=== PATIENT | female | born 1970 | race Caucasian/White ===

== ENCOUNTER 2017-08-16 07:31 | Day surgery (SDC) | payer OTHER ==
--- NOTE | 2017-08-16 07:59 | PDOC ---
History of Present Illness - General Chief Complaint: Pain Stated Complaint: STOMACH PAIN/VOMITING Time Seen by Provider: 08/16/17 07:59 - History of Present Illness Initial Comments: 46 year old female with PMH of Caesarian section (x2 most recent in 2010), lap band (2007), and cholecystectomy (1989) presenting with abdominal pain, nausea, and vomiting for the past few days. Patient states that she started having symptoms on Sunday08/13/17 which she described as some sharp generalized central abdominal pain that has gotten worse over the last few days and spread to her lower abdomen bilaterally. She has also had some NBNB vomiting x 2 daily along with some diarrhea x 2 daily[address] She spoke to Dr[address] Mandel who performed her lap band and he informed her to come to the ED. Denies, fevers, chills, chest pain, SOB, or other symptoms. 08/16/17 08:27 Past History - Past Medical History Allergies/Adverse Reactions: Allergies Allergy/AdvReac Type Severity Reaction Status Date / Time No Known Allergies Allergy Verified 08/16/17 07:33 COPD: No - Surgical History Abdominal Surgery: Yes (Lap band 2007) Cholecystectomy: Yes - Suicide/Smoking/Psychosocial Hx Smoking History: Never smoked Have you smoked in the past 12 months: No Information on smoking cessation initiated: No Hx Alcohol Use: No Drug/Substance Use Hx: No Substance Use Type: None Review of Systems - Review of Systems Constitutional: No: Chills, Diaphoresis, Fever HEENTM: No: See HPI, Eye Pain Respiratory: No: Cough, Shortness of Breath Cardiac (ROS): No: Chest Pain, Edema ABD/GI: Yes: Diarrhea, Nausea, Poor Appetite, Vomiting, Indigestion, Abdominal cramping. No: Constipated : No: Dysuria, Discharge, Frequency Musculoskeletal: No: Back Pain, Joint Pain, Muscle Weakness Integumentary: No: Bruising, Change in Color, Change in Hair/Nails, Flushing, Lesions Neurological: No: Headache, Numbness, Paresthesia Psychiatric: No: Anxiety, Depression *Physical Exam - Vital Signs Last Vital Signs Temp Pulse Resp BP Pulse Ox 98.0 F 88 16 143/81 100 08/16/17 07:33 08/16/17 07:33 08/16/17 07:33 08/16/17 07:33 08/16/17 07:33 - Physical Exam General Appearance: Yes: Nourished, Appropriately Dressed. No: Apparent Distress HEENT: positive: EOMI, LEROY, Normal ENT Inspection, Normal Voice Neck: positive: Trachea midline, Normal Thyroid, Supple. negative: Tender, Rigid Respiratory/Chest: positive: Lungs Clear, Normal Breath Sounds. negative: Chest Tender, Respiratory Distress, Accessory Muscle Use Cardiovascular: positive: Regular Rhythm, Regular Rate Gastrointestinal/Abdominal: positive: Normal Bowel Sounds, Tender ( periumbilical and bilateral lower quadrant tenderness), Flat, Soft Musculoskeletal: positive: Normal Inspection. negative: CVA Tenderness Extremity: positive: Normal Capillary Refill, Normal Inspection, Normal Range of Motion. negative: Tender Integumentary: positive: Normal Color, Dry, Warm Neurologic: positive: Fully Oriented, Alert, Normal Mood/Affect, Normal Response , Motor Strength 08/25 ED Treatment Course - LABORATORY CBC & Chemistry Diagram: 08/16/17 08:00 08/16/17 08:00 Medical Decision Making - Medical Decision Making Patient with lap band surgery 10 years prior presenting with gastroenteritis with non-specific abdominal pain. Dr. Mandel evaluated the patient at 9:20 and agreed to take her to the OR for her continuous abdominal pain. Her labs were roughly WNL with the exception of slightly elevated total bilirubin (1.2) with normal direct bilirubin. The rest of the preop labs are pending. Will admit to [facility]/ satellite under Dr. Mandel. 08/16/17 09:53 *DC/Admit/Observation/Transfer Diagnosis at time of Disposition: Gastroenteritis Abdominal pain Qualifiers: Abdominal location: generalized Qualified Code(s): R10.84 - Generalized abdominal pain - Discharge Dispostion Admit: Yes - Referrals Referrals: Ari Roach MD [Primary Care Provider] - - Patient Instructions - Post Discharge Activity
[2017-08-16] MEDS ORDERED: FAMOTIDINE IV 20 MG/12 ML VIAL IVPUSH ONE (08:06)
[2017-08-16] MEDS ORDERED: ONDANSETRON 4 MG/2 ML VIAL IVPUSH ONE (08:06)
[2017-08-16] MEDS ORDERED: MAG HYDROX/AL HYDROX/SIMETH 30 ML UNIT-DOSE CUP PO ONE (08:06)
[2017-08-16] MEDS ORDERED: FAMOTIDINE 20 MG/50 ML IVPB 20 MG/50 ML MG IVPB ONE ×2 (08:31→22:16)
[2017-08-16] MEDS ORDERED: ONDANSETRON 4 MG/2 ML VIAL ONE (08:31)
[2017-08-16] MEDS ORDERED: MAG HYDROX/AL HYDROX/SIMETH 30 ML UNIT-DOSE CUP ONE (08:31)
[2017-08-16 08:58] LABS: ALBUMIN 3.8 g/dl (3.4-5.0); ALK PHOS 70 U/L (45-117); AMYLASE 39 U/L (25-115); ANION GAP 6 (8-16); BASO % 1.3 % (0-2.0); BILIRUBIN,DIRECT 0.2 mg/dL (0.0-0.2); BILIRUBIN,TOTAL 1.2 mg/dL (0.2-1.0); BLOOD UREA NITROGEN 14 mg/dL (7-18); CALCIUM 8.8 mg/dL (8.5-10.1); CHLORIDE 108 mmol/L (98-107); CO2 27 mmol/L (21-32); CREATININE 0.8 mg/dL (0.55-1.02); EOS % 2.2 % (0-4.5); GLUCOSE,RANDOM 99 mg/dL (74-106); HEMATOCRIT 42.1 % (32.4-45.2); HEMOGLOBIN 14.5 GM/dL (10.7-15.3); LIPASE 110 U/L (73-393); LYMPH % 25.4 % (8-40); MCH 31.8 pg (25.7-33.7); MCHC 34.4 g/dl (32.0-36.0); MEAN CELL VOLUME 92.4 fl (80-96); MEAN PLT VOLUME 7.7 fl (7.5-11.1); MONO % 7.8 % (3.8-10.2); NEUT % 63.3 % (42.8-82.8); PLATELET COUNT 292 K/MM3 (134-434); POTASSIUM 4.4 mmol/L (3.5-5.1); RBC 4.56 M/mm3 (3.60-5.2); SGOT/AST 13 U/L (15-37); SGPT/ALT 16 U/L (12-78); SODIUM 141 mmol/L (136-145); TOT PROT 7.6 g/dl (6.4-8.2); WHITE BLOOD COUNT 7.1 K/mm3 (4.0-10.0)
--- NOTE | 2017-08-16 09:28 | PDOC ---
Attending Attestation - HPI HPI: 08/16/17 09:56 The patient is a 46 year old female, with a significant past medical history of lap band surgery (2007 or 2008 as per Pt), cholecystectomy, and two cesareans ( 1989 and 2010), who presents to the emergency department with nausea and vomiting after eating for the past few days. She states she also feels she has been gaining more weight and feels her midsection is larger than it was prior to her lap band surgery, however, states that might be all in my head. She states she becomes nauseous and vomits after eating. She reports, sometimes I do not eat the right things, but it is associated with anything I eat lately. She denies chest pain, shortness of breath, headache and dizziness. She denies fever, chills, diarrhea and constipation. She denies dysuria, frequency, urgency and hematuria. Allergies: NKDA Surgeon: Dr. Mandel PCP: Dr. Marj Roach - Physicial Exam PE: 08/16/17 09:59 Vitals: Triage vital signs reviewed General Appearance: No acute distress, well nourished, well developed Head: Atraumatic Eyes: Pupils equal reactive round, extraocular movement intact Neck: Supple; No nuchal rigidity Chest Wall: Nontender Cardiac: Regular rate and rhythm, no murmurs, no rubs, no gallops Lungs: Clear to auscultation bilateral, good air movement bilaterally Abdomen: (+) RUQ and LUQ ttp. Soft, nondistended, normal bowel sounds, Extremities: Full range of motion to all extremities, no cyanosis, clubbing, or edema Skin: Warm and dry, no rashes or lesions, no rash, no petechiae Neuro: AOX3; Cranial Nerves 2-12 grossly intact, Strength intact to all extremities, Sensation intact to all extremities, gait normal Psych: Normal mood, normal affect - Medical Decision Making 08/16/17 09:00 Documentation prepared by Kendra Razo, acting as medical collector for Timothy Burrell MD 08/16/17 09:57 Pt is a 46 y.o F with PMHx of lap band and cholecystectomy who presents with a few days of nausea and vomiting noted after PO Intake. Plan: EKG, labs, anti-nausea medication, pre-op for band removal. Dr. Mandel examined the patient in the ED at 9:30 <Kendra Razo - Last Filed: 08/16/17 09:56> - Resident Resident Name: Hood Singh - ED Attending Attestation I have performed the following: I have examined & evaluated the patient, The case was reviewed & discussed with the resident, I agree w/resident's findings & plan, Exceptions are as noted <Timothy Burrell - Last Filed: 08/16/17 14:12> Heart Score/ECG Review - ECG Impressions Comment:: 08/16/17 14:11 EKG performed at 9:07 AM. Demonstrates sinus rhythm [address] elevations, isolated T-wave inversion in lead 3 Interpreted by me. <Timothy Burrell - Last Filed: 08/16/17 14:12>
[2017-08-16 09:49] LABS: URINE APPEARANCE SLCLOUDY; URINE BILIRUBIN NEGATIVE (<2.0 mg/dL); URINE COLOR DKYELLOW; URINE GLUCOSE (UA) NEGATIVE (NEGATIVE); URINE KETONE NEGATIVE (NEGATIVE); URINE LEUK ESTERASE TRACE (NEGATIVE); URINE NITRITE NEGATIVE (NEGATIVE); URINE PROTEIN NEGATIVE (NEGATIVE); URINE UROBILINOGEN NEGATIVE mg/dL (0.2-1.0)
[2017-08-16 09:54] LABS: EPI CELLS FEW /HPF (FEW); URINE HYALINE CAST 7 /lpf; URINE MUCUS MANY
[2017-08-16 10:10] LABS: INR 0.97 (0.82-1.09)
[2017-08-16 11:41] VITALS: BMI 40.6
--- NOTE | 2017-08-16 12:35 | HP ---
Admitting History and Physical - Admission Chief Complaint: Epigastric pain, nausea, dysphagia History Source: Patient Limitations to Obtaining History: No Limitations - Past Medical History ...LMP: 07/13/17 ...: No - Past Surgical History Past Surgical History: Yes: Bariatric Surgery (S/P Gastric Band) - Smoking History Smoking history: Never smoked Have you smoked in the past 12 months: No - Alcohol/Substance Use Hx Alcohol Use: No Home Medications - Allergies Allergies/Adverse Reactions: Allergies Allergy/AdvReac Type Severity Reaction Status Date / Time No Known Allergies Allergy Verified 08/16/17 11:22 - Home Medications Home Medications: Ambulatory Orders NK [No Known Home Medication] 08/16/17 Family Disease History - Family Disease History Family History: Denies Review of Systems - Review of Systems Constitutional: denies: Fever Neck: reports: No Symptoms Cardiovascular: reports: No Symptoms Respiratory: reports: Cough Gastrointestinal: reports: Abdominal Pain (Epigastric), Nausea, Other (Dysphagia ) Neurological: denies: Change in LOC Pain Intensity: 4 Physical Examination Vital Signs: Vital Signs Temperature 98.9 F 08/16/17 10:55 Pulse Rate 82 08/16/17 11:00 Respiratory Rate 16 08/16/17 11:00 Blood Pressure 136/80 08/16/17 11:00 O2 Sat by Pulse Oximetry (%) 100 08/16/17 11:00 Constitutional: Yes: Calm HENT: Yes: WNL Neck: Yes: WNL Cardiovascular: Yes: Regular Rate and Rhythm Respiratory: Yes: Regular Gastrointestinal: Yes: Soft. No: Distention, Tenderness, Rebound Neurological: Yes: Alert, Oriented Labs: CBC, BMP 08/16/17 08:00 08/16/17 08:00 Problem List - Problems (1) Gastric band malfunction Code(s): K95.09 - OTHER COMPLICATIONS OF GASTRIC BAND PROCEDURE (2) Dysphagia Code(s): R13.10 - DYSPHAGIA, UNSPECIFIED Qualifiers: Dysphagia type: unspecified Qualified Code(s): R13.10 - Dysphagia, unspecified (3) Nausea Code(s): R11.0 - NAUSEA (4) Abdominal pain Code(s): R10.9 - UNSPECIFIED ABDOMINAL PAIN Qualifiers: Abdominal location: generalized Qualified Code(s): R10.84 - Generalized abdominal pain Assessment/Plan Gastric band malfunction Dysphagia For Laparoscopic possible open gastric band removal, removal of port and components
--- NOTE | 2017-08-16 12:55 | EKG ---
Test Reason : Blood Pressure : / mmHG Vent. Rate : 075 BPM Atrial Rate : 075 BPM P-R Int : 128 ms QRS Dur : 088 ms QT Int : 378 ms P-R-T Axes : 028 -19 018 degrees QTc Int : 422 ms SINUS RHYTHM WITH OCCASIONAL PREMATURE VENTRICULAR COMPLEXES OTHERWISE NORMAL ECG NO PREVIOUS ECGS AVAILABLE Confirmed by JASMEET PERSAUD, BRIA ([id number]) on 08/16/2017 12:55:29 PM Referred By: Confirmed By:BRIA ALAMO MD
[2017-08-16] MEDS ORDERED: BUPIVACAINE HCL/PF 0.5% (5MG/ML) 10 ML VIAL ONE (20:20)
[2017-08-16] MEDS ORDERED: SUCCINYLCHOLINE CHLORIDE 200 MG/10 ML VIAL ONE (20:24)
[2017-08-16] MEDS ORDERED: fentaNYL CITRATE 250 MCG/5 ML VIAL ONE (20:24)
[2017-08-16] MEDS ORDERED: ROCURONIUM BROMIDE 50 MG/5 ML VIAL ONE (20:24)
[2017-08-16] MEDS ORDERED: LIDOCAINE HCL/PF 2% SDV 5ML VIAL ONE (20:24)
[2017-08-16] MEDS ORDERED: DEXAMETHASONE SOD PHOSPHATE 4 MG/1 ML VIAL ONE (20:25)
[2017-08-16] MEDS ORDERED: KETOROLAC TROMETHAMINE 30 MG/1 ML VIAL ONE (20:25)
[2017-08-16] MEDS ORDERED: ceFAZolin SODIUM 1 GM VIAL IVPB ONE (20:34)
[2017-08-16] MEDS ORDERED: BUPIVACAINE HCL/PF 0.5% (5MG/ML) 10 ML VIAL IJ ONE (21:35)
[2017-08-16] MEDS ORDERED: NEOSTIGMINE METHYLSULFATE 0.5 MG/ML - 10 ML MDV ONE (21:36)
[2017-08-16] MEDS ORDERED: GLYCOPYRROLATE 0.2 MG/1 ML VIAL ONE ×3 (21:36→21:38)
[2017-08-16] MEDS ORDERED: ONDANSETRON 4 MG/2 ML VIAL IVPUSH PRN ×2 (21:37→21:49)
[2017-08-16] MEDS ORDERED: ENOXAPARIN NA (PORCINE) 40 MG/0.4 ML DISP.SYRIN SQ ONE ×2 (21:37→22:16)
[2017-08-16] MEDS ORDERED: morphine CARPU-JECT 4 MG/1 ML DISP.SYRIN IVPUSH PRN (21:38)
[2017-08-16] MEDS ORDERED: SODIUM CHLORIDE 1,000 ML IV SCH (21:45)
[2017-08-16] MEDS ORDERED: PROMETHAZINE HCL 25 MG/1 ML VIAL IVPUSH PRN (21:49)
[2017-08-16] MEDS ORDERED: oxyCODONE HCL 5 MG TABLET PO PRN (21:49)
--- NOTE | 2017-08-16 21:49 | OP ---
Operative Note - Note: Operative Date: 08/16/17 Pre-Operative Diagnosis: Dysphagia. Epigastric pain. Malfunctioning gastric band Operation: Diagnostic laparoscopy. Laparoscopic lysis of adhesions. Removal of gastric band, port and components. Capsulotomy. Open incisional hernia repair Post-Operative Diagnosis: Same as Pre-op (Same as preop, intraabdominal adhesions, incisional hernia) Surgeon: Alvaro Mandel Grinder Outside Diameter: Tyler Jewell Anesthesia: General Specimens Removed: Gastric band port and components Estimated Blood Loss (mls): 30 Operative Report Dictated: Yes
[2017-08-16] MEDS ORDERED: FAMOTIDINE 20 MG/50 ML IVPB 20 MG/50 ML MG IVPB SCH (22:00)
[2017-08-16] MEDS ORDERED: LACTATED RINGERS SOLUTION 1,000 ML IV SCH (22:00)
[2017-08-16] MEDS ORDERED: FAMOTIDINE 20 MG PREMIXED IVPB IVPB ONE (22:15)
--- NOTE | 2017-08-16 22:29 | OP ---
DATE OF OPERATION: 08/16/2017 SURGEON: Alvaro Mandel MD RECORDS CUSTODIAN: Tyler Jewell MD PREOPERATIVE DIAGNOSES: 1. Dysphagia. 2. Epigastric pain. 3. Malfunctioning gastric band. POSTOPERATIVE DIAGNOSES: 1. Dysphagia. 2. Epigastric pain. 3. Malfunctioning gastric band. 4. Intraabdominal adhesions. PROCEDURE: 1. Diagnostic laparoscopy. 2. Laparoscopic lysis of adhesions. 3. Laparoscopic removal of gastric band, port, and components. 4. Laparoscopic capsulotomy. SPECIMEN: Gastric band, port, and components. ESTIMATED BLOOD LOSS: 30 mL. DRAINS: None. ANESTHESIA: GET. FINDINGS POSTOPERATIVELY: A hernia at the 50-mm trocar site. REASON FOR PROCEDURE: This is a 46-year-old female who presented to the emergency room for dysphagia, epigastric pain, and evidence of a malfunctioning gastric band. She has had multiple issues with her gastric band. In this episode, she has had persistent dysphagia and epigastric pain despite multiple attempts at treatment. Because of this, she wanted the band removed and was consented for a laparoscopic gastric band removal with port and components, possible open, possible upper endoscopy. The risks and benefits of the procedure were explained. These included bleeding, infection, hernia, TX, DVT, PE, injury to surrounding structures including the esophagus, stomach, colon, small bowel, vessel injury, nerve injury, other intraabdominal organs, leak, sepsis, persistent dysphagia, persistent epigastric abdominal pain, weight regain, as some of the complications. She understood and signed informed consent. DESCRIPTION OF PROCEDURE: The patient was placed supine on the operating room table, underwent general endotracheal intubation. The abdomen was prepped and draped in the usual sterile fashion. Timeout was performed. An OG tube was inserted by Anesthesia. Incision was made superior and to the left of the umbilicus. Veress needle was inserted and pneumoperitoneum was established. The Veress needle was then removed and entrance was obtained using a 5-mm optical trocar under direct visualization of the laparoscope. A 5-mm trocar was then placed in the lateral right subcostal region and the lateral left subcostal region. A 50-mm trocar was placed superior and to the right of the umbilicus. There were dense intra-abdominal adhesions noted. These were carefully taken down using sharp dissection. This was necessary in order to visualize the surgical field. Once all adhesions were taken down, hemostasis was noted, a stab was made in the subxiphoid area and the liver retractor inserted. The liver was retracted to the anterior abdominal wall and attached to the side of the table. The patient was placed in deep reverse Trendelenburg position. Further abdominal adhesions were also seen and taken down using sharp dissection. The band was noted to be a Realize band and dissection was performed with electrocautery over the level of the band and tube. Once the band was completely freed, the band was cut with a scissors and the band removed from around the stomach. The tubing was cut with a scissors as well. The band and the tubing attached to it were removed from the abdominal cavity and sent off the field. Capsulotomy was then performed using sharp Metzenbaum scissors. The liver retractor was then removed under direct visualization, hemostasis again noted. All trocars were removed and the patient was placed flat. Pneumoperitoneum was desufflated. The 50-mm trocar site was then extended, and dissection performed down to the level of the fascia. The port was removed in its entirety and sent off the field. Hemostasis was noted at all incision sites. A 0 Vicryl suture was used to close the fascia that was noted to be opened near the 50-mm trocar site, closing a fascial/hernia defect. A 3-0 Vicryl suture was then used to close the deep layers at this level. A 4-0 Vicryl was used to close all skin incisions. Marcaine was injected. Sterile dressings were applied. The patient tolerated the procedure well, was transferred to recovery room in stable condition. Yuliet FENG/[id number]
[2017-08-17 00:19] VITALS: BP 139/83; PULSE 75; TEMP 98.4
--- NOTE | 2017-08-17 10:02 | PN ---
Progress Note (short form) - Note Progress Note: POD #1 - s/p lap band removal under GA. VSS. Pt. doing well, sitting up comfortably in bed. No complaints. No apparent anesthetic complications noted. Continue current care.
--- NOTE | 2017-08-20 13:21 | PATH ---
Surgical Pathology Report Patient Name: LATISHA KELLY [facility]. Rec. #: [id number] /Age/Gender: 1970 (Age: 46) / F Account: [id number] Location: AMBULATORY SURG Taken: 08/16/2017 Received: 08/17/2017 Reported: 08/20/2017 Physicians: Alvaro Mandel M.D. 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 Electronically Signed Roland Ivan M.D. Gross Description Received fresh labeled "gastric band, port and components," is a 4 cm in diameter white, annular device, consistent with a lap band. The band displays a 29 cm in length portion of tubing extending from one aspect. Also received within the same container is a 3.2 cm in diameter x 1.7 cm in depth iglesias, circular device, consistent with a port. The port displays a 14 cm in length portion of tubing extending from one aspect. No soft tissue is present. No sections are submitted, gross only. DL/08/17/2017 saudi/08/17/2017
== END 2017-08-17 00:40 | disposition home or self-care (01) ==
LOC: JER 07:31 → JASUSAT 09:39 → J8W 23:59 → JASUSAT 08-17 00:40
PROVIDERS: ATTEND Surgery
PROC: 0DP64YZ Removal of Other Device from Stomach, Percutaneous Endoscopic Approach (ICD-10-PCS; principal; 2017-08-16 17:00)
DX: K95.09 Other complications of gastric band procedure (principal); R13.19 Other dysphagia; R13.10 Dysphagia, unspecified
CPT/HCPCS: 36415; 80053; 81003; 81015; 82150; 82248; 83690; 84703; 85025; 85610; 86850; 86900; 86901; 88300-TC; 93005; 93010; 94760; 99283-25

== ENCOUNTER 2017-12-18 05:08 | Inpatient (IN) | payer OTHER ==
[2017-12-14 10:06] VITALS: BMI 40.8
--- NOTE | 2017-12-18 09:26 | HP ---
Admitting History and Physical - Admission Chief Complaint: Morbid obesity History Source: Patient Limitations to Obtaining History: No Limitations - Past Medical History ...LMP: 11/25/17 ...LMP Comment: regular ...: No - Past Surgical History Past Surgical History: Yes: Bariatric Surgery (S/P Gastric Band) - Smoking History Smoking history: Never smoked Have you smoked in the past 12 months: No - Alcohol/Substance Use Hx Alcohol Use: No Home Medications - Allergies Allergies/Adverse Reactions: Allergies Allergy/AdvReac Type Severity Reaction Status Date / Time No Known Allergies Allergy Verified 12/18/17 09:04 - Home Medications Home Medications: Ambulatory Orders Motrin Ib 800 mg PO PRN PRN 12/14/17 Tums 2 tab PO PRN PRN 12/14/17 Family Disease History - Family Disease History Family History: Unremarkable Review of Systems - Review of Systems Constitutional: denies: Chills, Fever HENT: reports: No Symptoms Neck: reports: No Symptoms Cardiovascular: reports: No Symptoms Respiratory: reports: No Symptoms Neurological: reports: No Symptoms Pain Intensity: 0 Physical Examination Vital Signs: Vital Signs Temperature 98.2 F 12/18/17 08:45 Pulse Rate 94 H 12/18/17 08:45 Respiratory Rate 20 12/18/17 08:45 Blood Pressure 141/88 12/18/17 08:45 O2 Sat by Pulse Oximetry (%) 98 12/18/17 08:42 Constitutional: Yes: Calm Neck: Yes: WNL Cardiovascular: Yes: WNL Respiratory: Yes: Regular Gastrointestinal: Yes: Soft, Abdomen, Obese Neurological: Yes: Alert, Oriented Problem List - Problems (1) BMI 40.0-44.9, adult Code(s): Z68.41 - BODY MASS INDEX (BMI) 40.0-44.9, ADULT (2) Morbid obesity due to excess calories Code(s): E66.01 - MORBID (SEVERE) OBESITY DUE TO EXCESS CALORIES Assessment/Plan Laparoscopic possible open vertical sleeve gastrectomy, possible liver biopsy, EGD
[2017-12-18] MEDS ORDERED: ROPIVACAINE HCL 0.5% 30ML VIAL ONE (09:38)
[2017-12-18] MEDS ORDERED: MIDAZOLAM HCL 2 MG/2 ML SINGLE DOSE VIAL ONE ×2 (09:39)
[2017-12-18] MEDS ORDERED: LIDOCAINE HCL/PF 2% SDV 5ML VIAL ONE (09:39)
[2017-12-18] MEDS ORDERED: ROCURONIUM BROMIDE 50 MG/5 ML VIAL ONE ×2 (09:39→11:13)
[2017-12-18] MEDS ORDERED: PROPOFOL 20 ML ONE ×3 (09:39→11:30)
[2017-12-18] MEDS ORDERED: fentaNYL CITRATE 250 MCG/5 ML VIAL ONE (09:39)
[2017-12-18] MEDS ORDERED: ceFAZolin SODIUM 1 GM VIAL ONE (10:28)
[2017-12-18] MEDS ORDERED: ceFAZolin SODIUM 1 GM VIAL IVPB ONE (10:30)
[2017-12-18] MEDS ORDERED: ONDANSETRON 4 MG/2 ML VIAL ONE (11:10)
[2017-12-18] MEDS ORDERED: NEOSTIGMINE METHYLSULFATE 0.5 MG/ML - 10 ML MDV ONE (11:10)
[2017-12-18] MEDS ORDERED: GLYCOPYRROLATE 0.2 MG/1 ML VIAL ONE (11:10)
[2017-12-18] MEDS ORDERED: BUPIVACAINE HCL/PF 0.5% (5MG/ML) 10 ML VIAL IJ ONE (11:36)
--- NOTE | 2017-12-18 11:39 | OP ---
Operative Note - Note: Operative Date: 12/18/17 Pre-Operative Diagnosis: Morbid obesity Operation: Laparoscopic vertical sleeve gastrectomy, lysis of adhesions, wedge liver biopsy, EGD Post-Operative Diagnosis: Other (Morbid obesity, hepatomegaly, intraabdominal adhesions) Surgeon: Alvaro Mandel Legal Records Clerk: Lanny Suazo Anesthesia: General Specimens Removed: Greater curvature of stomach. Liver biopsy Estimated Blood Loss (mls): 30 Drains & Tubes with Location: 36 [address] Operative Report Dictated: Yes
[2017-12-18] MEDS ORDERED: morphine SULFATE 4 MG/ML VIAL IVPUSH PRN (11:40)
[2017-12-18] MEDS ORDERED: SODIUM CHLORIDE 1,000 ML IV SCH (11:45)
[2017-12-18] MEDS ORDERED: oxyCODONE HCL 5 MG TABLET PO PRN (11:56)
--- NOTE | 2017-12-18 11:57 | SURG ---
Surgery Leather Case Finisher Note Leather Case Finisher: Lanny Suazo PA-C Date of Service: 12/18/17 Diagnosis: Morbid obesity Procedure: Laparoscopic vertical sleeve gastrectomy, lysis of adhesions, wedge liver biopsy, EGD I was present for the entirety of the operative procedure. For further detail, please refer to operative report. Visit type - Case Type Case Type: Scheduled - Emergency Emergency Visit: No - New patient This patient is new to me today: Yes Date on this admission: 12/18/17
[2017-12-18] MEDS ORDERED: LACTATED RINGERS SOLUTION 1,000 ML IV SCH (12:00)
[2017-12-18] MEDS ORDERED: FAMOTIDINE 20 MG/50 ML IVPB 20 MG/50 ML MG IVPB ONE (12:08)
[2017-12-18] MEDS: ACETAMINOPHEN 1000 MG/100 ML VIAL (NON FORMULARY) IVPB SCH ×2 (12:15→18:38)
[2017-12-18 12:44] LABS: HEMATOCRIT 39.6 % (32.4-45.2); HEMOGLOBIN 13.4 GM/dL (10.7-15.3); MCH 31.3 pg (25.7-33.7); MCHC 33.9 g/dl (32.0-36.0); MEAN CELL VOLUME 92.5 fl (80-96); MEAN PLT VOLUME 7.7 fl (7.5-11.1); PLATELET COUNT 249 K/MM3 (134-434); RBC 4.27 M/mm3 (3.60-5.2); RDW 13.3 % (11.6-15.6); WHITE BLOOD COUNT 12.3 K/mm3 (4.0-10.0)
[2017-12-18] MEDS: FAMOTIDINE 20 MG/50 ML IVPB 20 MG/50 ML MG IVPB SCH ×3 (12:50→22:31)
--- NOTE | 2017-12-18 13:08 | SPEC ---
DATE OF OPERATION: 12/18/2017 SURGEON: Alvaro Mandel MD RESIDENTIAL RECYCLE DRIVER: MOOSE Griggs PREOPERATIVE DIAGNOSIS: 1. Morbid obesity. 2. Body mass index 40.9. POSTOPERATIVE DIAGNOSIS: 1. Morbid obesity. 2. Body mass index 40.9. 3. Hepatomegaly. 4. Intraabdominal adhesions. PROCEDURE: 1. Laparoscopic lysis of adhesions. 2. Laparoscopic vertical sleeve gastrectomy. 3. Laparoscopic wedge liver biopsy. 4. Esophagogastroduodenoscopy. SPECIMEN: 1. Greater curvature of the stomach. 2. Wedge liver biopsy. ESTIMATED BLOOD LOSS: 30 mL. DRAINS: None. ANESTHESIA: GET. BOUGIE SIZE: 36-[place]ian. REASON FOR PROCEDURE: This is a 47-year-old female who presents for weight loss options. She had a previous band that was causing dysphagia, epigastric pain, nausea, and vomiting, which was previously removed. For further weight loss options, she has decided to proceed with a laparoscopic possible open vertical sleeve gastrectomy with possible wedge liver biopsy and upper endoscopy. The patient was seen by the respective subspecialties and cleared for surgery. The risks and benefits of the procedure were explained. These included bleeding, infection, hernia, AL, DVT, PE, injury to surrounding structures including the liver, colon, bowel, spleen, esophagus, vessel injury, nerve injury, weight regain, gastric leak, staple line leak, sleeve leak, obstruction, vitamin deficiency, hair loss and as some of the possible complications. The patient understood and signed informed consent. DESCRIPTION OF PROCEDURE: The patient was placed supine on the operating room table. The patient underwent general endotracheal intubation. The arms were brought out at 90 degrees and secured. A footboard was placed and the legs were secured laterally with padding. The abdomen was prepped and draped in the usual sterile fashion. A timeout was performed. An incision was made in the left upper quadrant and a Veress needle inserted. Pneumoperitoneum was established. Subsequently, the Veress needle was removed and a 5-mm trocar was placed under direct visualization with the laparoscope. The laparoscopic camera was then inserted and inspection of the abdominal cavity was performed. An incision was then made in the supraumbilical area and a 15-mm trocar was placed under direct visualization. A 5-mm trocar was then placed in the right upper quadrant and a 5-mm trocar was placed below the left subcostal margin. A stab wound was made in the subxiphoid area and a Kandis clamp inserted and removed to dilate the tract. A Max liver retractor was inserted. The post was secured at the bedside by the nursing staff. The patient was placed in steep reverse Trendelenburg position and the Max liver retractor was used to secure the liver towards the anterior abdominal wall. The pylorus was identified and 6 cm proximal to it, the lesser sac was entered using the LigaSure device. All lateral attachments to the greater curvature of the stomach, including the short gastric vessels, were ligated using the LigaSure device toward the gastrosplenic and gastrophrenic ligaments. Once this was done in its entirety, it was confirmed that all tubes within the nasal or oropharyngeal cavity, including a temperature probe, was removed by Anesthesia. The bougie was then inserted by Anesthesia. Transection of the stomach was then begun staying adjacent to the bougie but away from the angularis. Transection of the stomach was performed near the portion of the stomach where the lesser sac was entered. Two laparoscopic Endo-MARCO black shaka were used at this location. Laparoscopic Endo MARCO purple staple loads were then used for the remainder of the transection until the greater curvature of the stomach was fully transected. This was done staying close to the bougie. Care was taken to stay away from the angle of His cephalad. The staple line was then inspected. Hemostasis was identified. A leak test was then performed. It was clamped distally to the staple line. Irrigation solution was placed in the left upper quadrant and air was insufflated by Anesthesia into the sleeve. No leaks were identified. No obstruction was identified. This was done through the entirety of the staple line. In addition, an upper endoscopy was performed. The endoscope was placed into the patients mouth and the entirety of the esophagus, GE junction, gastric pouch and staple line were inspected. No obstruction or leak was noted. The stomach was suctioned and the endoscope removed fully intact. At this point, the irrigation solution was suctioned and again, hemostasis was noted. A wedge liver biopsy was then performed. The left lobe of the liver was identified and a portion of the edge was grasped. Using electrocautery, a wedge of the liver was excised. This was removed and sent off the field as specimen. Hemostasis at the site of the wedge liver biopsy was attained using electrocautery. The 15-mm supraumbilical trocar was then removed and the greater curvature specimen removed from the site using a sponge stick landers. The specimen was inspected and a Veress needle inserted. The specimen insufflated adequately and no leak was identified. The staple line was noted to be intact. A Low-Alie device was then used to close the fascia with a 0 Vicryl suture at the site. Again, hemostasis was noted. The Max liver retractor was then removed under direct visualization. Pneumoperitoneum was desufflated and the fascial sutures were secured. Hemostasis was noted at all incision sites and Marcaine was injected at all incision sites. All incision sites were closed using 4-0 Biosyn. Sterile dressings were applied. The patient tolerated the procedure well and was transferred to the recovery room in stable condition. The patient was transferred to telemetry for further monitoring. Yuliet FENG/[id number]
[2017-12-18 13:13] LABS: ALBUMIN 3.4 g/dl (3.4-5.0); ANION GAP 9 MMOL/L (8-16); BILIRUBIN,TOTAL 0.5 mg/dL (0.2-1.0); BLOOD UREA NITROGEN 10 mg/dL (7-18); CALCIUM 8.6 mg/dL (8.5-10.1); CHLORIDE 105 mmol/L (98-107); CO2 25 mmol/L (21-32); CREATININE 0.8 mg/dL (0.55-1.02); GLUCOSE,RANDOM 107 mg/dL (74-106); POTASSIUM 4.1 mmol/L (3.5-5.1); SGOT/AST 33 U/L (15-37); SODIUM 139 mmol/L (136-145); TOT PROT 6.8 g/dl (6.4-8.2)
[2017-12-18] MEDS: ONDANSETRON 4 MG/2 ML VIAL IVPUSH SCH ×3 (13:15→22:31)
[2017-12-18 13:17] LABS: ALK PHOS 66 U/L (45-117); SGPT/ALT 32 U/L (12-78)
[2017-12-18] MEDS: METOCLOPRAMIDE HCL INJECTION 10 MG/2 ML VIAL IVPUSH SCH ×3 (14:21→22:31)
[2017-12-18] MEDS: ENOXAPARIN NA (PORCINE) 40 MG/0.4 ML DISP.SYRIN SQ SCH (22:30)
[2017-12-19] MEDS: METOCLOPRAMIDE HCL INJECTION 10 MG/2 ML VIAL IVPUSH SCH ×3 (04:30→11:49)
[2017-12-19] MEDS: ONDANSETRON 4 MG/2 ML VIAL IVPUSH SCH ×4 (04:30→16:31)
[2017-12-19] MEDS: ACETAMINOPHEN 1000 MG/100 ML VIAL (NON FORMULARY) IVPB SCH (06:17)
[2017-12-19 06:36] LABS: HEMATOCRIT 34.9 % (32.4-45.2); HEMOGLOBIN 11.9 GM/dL (10.7-15.3); MCH 31.5 pg (25.7-33.7); MEAN CELL VOLUME 92.5 fl (80-96); MEAN PLT VOLUME 7.5 fl (7.5-11.1); PLATELET COUNT 211 K/MM3 (134-434); RBC 3.77 M/mm3 (3.60-5.2); RDW 13.5 % (11.6-15.6)
[2017-12-19 07:27] LABS: CHLORIDE 106 mmol/L (98-107); POTASSIUM 3.6 mmol/L (3.5-5.1); SODIUM 140 mmol/L (136-145)
[2017-12-19 07:40] LABS: ALBUMIN 2.7 g/dl (3.4-5.0); ALK PHOS 54 U/L (45-117); ANION GAP 8 MMOL/L (8-16); BLOOD UREA NITROGEN 6 mg/dL (7-18); CALCIUM 7.5 mg/dL (8.5-10.1); CO2 26 mmol/L (21-32); CREATININE 0.7 mg/dL (0.55-1.02); GLUCOSE,RANDOM 81 mg/dL (74-106); SGOT/AST 28 U/L (15-37); SGPT/ALT 31 U/L (12-78); TOT PROT 5.7 g/dl (6.4-8.2)
--- NOTE | 2017-12-19 08:31 | PN ---
Addendum entered and electronically signed by Lanny Suazo PA 12/19/17 10 :07: UGI, no evidence of katerina, obstruction. start BS1D, D/c planning for later today if tolerating. Original Note: Progress Note (short form) - Note Progress Note: surgery POD #1 lap gastric sleeve patient seen and examined at bedside. Patient has been oob, ambulating and voiding. She states her pain is controlled and she denies any CP, SOB, N/V/D fever or chills. Vital Signs Temp 98.1 F 12/19/17 06:00 Pulse 80 12/19/17 06:00 Resp 20 12/19/17 06:00 BP 137/81 12/19/17 06:00 Pulse Ox 98 12/18/17 21:00 Intake & Output 12/18/17 12/18/17 12/19/17 11:59 23:59 11:59 Intake Total 1500 750 Output Total 20 0 Balance 1480 750 Weight 231 lb 12.8 oz Intake: IV 1500 650 Normal Saline - 1,000 ml 600 @ 150 mls/hr IV ASDIR SANTOS Rx#:[id number] IVPB 100 Output: Urine 0 Estimated Blood Loss 20 Other: Voiding Method Toilet Toilet # Unmeasured Voids Void 2 Weight Measurement Method Standing Scale CBC, BMP 12/19/17 05:30 12/19/17 05:30 PE: A&Ox3, NAD unlabored resp on RA ABD: obese, soft, ND with mild ttp over epigastrum and RUQ appropriate to status , incision c/d/i with surrounding tissue intact and no erythema, gross edema, collection of d/c. b/L LE compartments soft, supple and non-tender with +2 pedal pulses. <Lanny Suazo - Last Filed: 12/19/17 08:31> - Note Progress Note: Agree POD 1 Pain controlled AVSS Abd soft UGI: no leak/obstruction Clears Discharge home <Alvaro Mandel - Last Filed: 12/19/17 14:27> Problem List - Problems (1) S/P laparoscopic sleeve gastrectomy Assessment/Plan: POD #1 doing well 1) Upper GI study this morning if no leak will start BS1D 2) OOB as tolerated 3) encourage IS 4) pain control 5) D/c planning for later today if tolerating diet and pain controlled. Code(s): Z98.84 - BARIATRIC SURGERY STATUS <Lanny Suazo - Last Filed: 12/19/17 08:31> - Problems (1) BMI 40.0-44.9, adult Code(s): Z68.41 - BODY MASS INDEX (BMI) 40.0-44.9, ADULT (2) Morbid obesity due to excess calories Code(s): E66.01 - MORBID (SEVERE) OBESITY DUE TO EXCESS CALORIES <Alvaro Mandel - Last Filed: 12/19/17 14:27>
[2017-12-19] MEDS: ENOXAPARIN NA (PORCINE) 40 MG/0.4 ML DISP.SYRIN SQ SCH (09:31)
[2017-12-19] MEDS: FAMOTIDINE 20 MG/50 ML IVPB 20 MG/50 ML MG IVPB SCH (09:31)
[2017-12-19] MEDS ORDERED: oxyCODONE HCL 5 MG TABLET PO PRN (10:09)
[2017-12-19] MEDS ORDERED: SODIUM CHLORIDE 1,000 ML IV SCH (10:15)
--- NOTE | 2017-12-19 10:57 | PN ---
Progress Note, Physician Chief Complaint: s/p vertical gastric sleeve under general anesthesia History of Present Illness: post op day one - Current Medication List Current Medications: Active Medications Enoxaparin Sodium (Lovenox -) [address] [facility] Last Admin: 12/19/17 09:31 Dose: 40 mg Famotidine/Sodium Chloride (Pepcid 20 Mg Premixed Ivpb -) 20 mg in 50 mls @ 100 mls/hr IVPB BID [facility] Last Admin: 12/19/17 09:31 Dose: 100 mls/hr Sodium Chloride (Normal Saline -) 1,000 mls @ 75 mls/hr IV ASDIR [facility] Last Admin: 12/19/17 10:38 Dose: 75 mls/hr Metoclopramide HCl (Reglan Injection -) [address] [facility] Last Admin: 12/19/17 06:16 Dose: 10 mg Morphine Sulfate (Morphine Sulfate) 4 mg IVPUSH Q4H PRN PRN Reason: PAIN LEVEL 6-10 Ondansetron HCl (Zofran Injection) [address] [facility] Last Admin: 12/19/17 09:32 Dose: 4 mg Oxycodone HCl (Roxicodone -) 5 mg PO Q4H PRN PRN Reason: PAIN LEVEL 1-5 Stop: 12/19/17 11:55 Oxycodone HCl (Roxicodone -) 5 mg PO Q4H PRN PRN Reason: PAIN LEVEL 1-5 - Objective Vital Signs: Vital Signs Temperature 98.1 F 12/19/17 06:00 Pulse Rate 80 12/19/17 06:00 Respiratory Rate 20 12/19/17 09:00 Blood Pressure 137/81 12/19/17 06:00 O2 Sat by Pulse Oximetry (%) 98 12/19/17 09:00 Constitutional: Yes: Well Nourished Cardiovascular: Yes: WNL Respiratory: Yes: WNL Gastrointestinal: Yes: WNL Labs: CBC, BMP 12/19/17 05:30 12/19/17 05:30 Assessment/Plan no adverse effects of anesthetic, dept of anesthesia will sign off care at this time
[2017-12-19 19:23] VITALS: BP 127/75; PULSE 78; TEMP 98.2
--- NOTE | 2017-12-20 11:37 | PATH ---
Surgical Pathology Report Patient Name: LATISHA KELLY [facility]. Rec. #: [id number] /Age/Gender: 1970 (Age: 47) / F Account: [id number] Location: 4 W TELEMETRY U Taken: 12/18/2017 Received: 12/18/2017 Reported: 12/20/2017 Physicians: Alvaro Mandel M.D. Specimen(s) Received A: GREATER CURVATURE STOMACH B: LIVER BIOPSY Clinical History Morbid obesity Final Diagnosis A. STOMACH, GREATER CURVATURE, LAPAROSCOPIC VERTICAL SLEEVE GASTRECTOMY: PORTION OF STOMACH WITH MILD CHRONIC GASTRITIS. IMMUNOHISTOCHEMICAL STAIN IS NEGATIVE FOR H. PYLORI ORGANISMS, B. LIVER, BIOPSY: LIVER TISSUE WITH STEATOSIS (~40%). TRICHROME STAIN SHOWS NO INCREASED FIBROSIS. RETICULIN STAIN SHOWS AN INTACT SINUSOIDAL ARCHITECTURE. IRON STAIN IS NEGATIVE FOR SIDEROSIS. Comment: The biopsy is subcapsular with areas of thermal artifact. Electronically Signed Jameson Adams M.D. Gross Description A. Received in formalin, labeled "greater curvature of stomach," is a 72 gram, 15.5 x 3.4 x 2.8 cm. portion of stomach with a stapled margin of resection. The serosa is iglesias-zuniga with minimal attached fat. The mucosa is iglesias-pink with normal folds. No mucosal masses are identified. Electrical Prospector sections are submitted in one cassette. B. Received in formalin labeled "liver biopsy," 1.8 x 0.7 x 0.6 cm iglesias, irregular portion of soft tissue, consistent with liver. The specimen is bisected and entirely submitted in one cassette. /12/18/2017 [facility]12/18/2017
== END 2017-12-19 18:53 | disposition home or self-care (01) | DRG 403 ==
LOC: JSAMEDAYSX 05:08 → EDSTATUS 08:00 → J4W 14:40
PROVIDERS: ADMIT Surgery; ATTEND Surgery
PROC: 0DB64Z3 Excision of Stomach, Percutaneous Endoscopic Approach, Vertical (ICD-10-PCS; principal; 2017-12-18 10:00)
PROC: 0FB24ZX Excision of Left Lobe Liver, Percutaneous Endoscopic Approach, Diagnostic (ICD-10-PCS; 2017-12-18 10:00)
PROC: 0DJ08ZZ Inspection of Upper Intestinal Tract, Via Natural or Artificial Opening Endoscopic (ICD-10-PCS; 2017-12-18 10:00)
DX: E66.01 Morbid (severe) obesity due to excess calories (principal); Z68.41 Body mass index [BMI] 40.0-44.9, adult; R16.0 Hepatomegaly, not elsewhere classified; K66.0 Peritoneal adhesions (postprocedural) (postinfection)
CPT/HCPCS: 36415; 74241-TC-FY; 80053; 84703; 85027; 88305-TC; 94010; 94760; J0131; J7030